=== PATIENT | female | born 1990 | race Caucasian/White ===

== ENCOUNTER 2017-07-18 10:15 | Emergency (ER) | payer OTHER ==
[~2017-07-18] VITALS: Ht 167.6 cm; Wt 68.0 kg
[~2017-07-18 10:15] MED LIST: ANAPROX DS550 MG PO; MOTRIN800 MG PO
[2017-07-18 10:20] VITALS: BP 122/74
[2017-07-18] MEDS ORDERED: IBUPROFEN600 MG PO ×2 (10:31→10:32)
== END 2017-07-18 11:20 | disposition home or self-care (01) ==
LOC: ED 10:15
DX: M77.01 Medial epicondylitis, right elbow (principal)

== ENCOUNTER 2018-12-25 11:37 | Emergency (ER) | payer OTHER ==
[~2018-12-25] VITALS: Ht 167.6 cm; Wt 70.3 kg
[~2018-12-25 11:37] MED LIST changes: +IBUPROFEN600 MG PO
[2018-12-25 11:41] VITALS: BP 148/66
[2018-12-25 12:31] LABS: BILIRUBIN NEGATIVE (NEGATIVE); BLOOD NEGATIVE (NEGATIVE); CLARITY CLOUDY (CLEAR); COLOR YELLOW (YELLOW); GLUCOSE NEGATIVE (NEGATIVE); KETONE NEGATIVE (NEGATIVE); LEUKO ESTERASE NEGATIVE (NEGATIVE); NITRITE NEGATIVE (NEGATIVE); PH 6.5 (5.0-9.0); UROBILINOGEN 0.2 E.U./dl (0.2-1.0)
[2018-12-25] MEDS ORDERED: PRENATAL TABLE1 EAC2 PO (12:40)
[2018-12-25 12:45] LABS: BACTERIA 2+; EPITHELIAL CELLS 20-30
== END 2018-12-25 12:53 | disposition home or self-care (01) ==
LOC: ED 11:37
PROVIDERS: Nurse Practitioner Family
DX: Z32.01 Encounter for pregnancy test, result positive (principal)